=== PATIENT | male | born 1995 | race Two or more races ===

== ENCOUNTER 2018-03-10 23:02 | Emergency (ER) | payer OTHER ==
[~2018-03-10] VITALS: Ht 177.8 cm; Wt 86.2 kg
[2018-03-10 23:42] VITALS: BP 159/62
[2018-03-11] MEDS ORDERED: HYDROcodone-ACET 10/325MG TAB PO ONE (00:15)
[2018-03-11] MEDS ORDERED: IBUPROFEN 600 MG TAB PO ONE (00:15)
== END 2018-03-11 00:49 | disposition home or self-care (01) ==
LOC: ER 23:02
DX: M62.838 Other muscle spasm (principal); M54.2 Cervicalgia; R51 Headache; M25.512 Pain in left shoulder; V43.52XA Car driver injured in collision with other type car in traffic accident, initial encounter; Y93.89 Activity, other specified; Y99.8 Other external cause status; Y92.410 Unspecified street and highway as the place of occurrence of the external cause
CPT/HCPCS: 71045; 72125; 73030